=== PATIENT | female | born 1975 | race Caucasian/White ===

== ENCOUNTER 2016-09-06 17:36 | Emergency (ER) | payer MEDICAID ==
[~2016-09-06] VITALS: Ht 172.7 cm; Wt 73.6 kg
[~2016-09-06 17:36] MED LIST: ADDERALL20 MG PO; AMBIEN 10MG10 MG PO; XANAX 0.5MG0.5 MG PO
[2016-09-06 17:41] VITALS: TEMP 98.9
[2016-09-06] MEDS ORDERED: GEODON 20 MG20 MG PO (17:44)
[2016-09-06] MEDS ORDERED: EFFEXOR XR75 MG/CAP PO (17:44)
[2016-09-06 18:42] LABS: BASO # 0.1 (0.0-0.2); BASO % 0.9 % (0.0-2.0); EOS # 0.1 (0.0-0.7); GRAN % 63.5 % (42.2-75.2); HEMATOCRIT 41.1 % (37.0-47.0); HEMOGLOBIN 13.8 g/dl (12.5-16.0); LYMPH # 3.3 (1.2-3.4); LYMPH % 29.7 % (20.0-51.0); MEAN CELL VOLUME 87 fl (80.0-100.0); MEAN CORPUSCULAR HEMOGLOBIN 29 pg (27.0-31.0); MEAN CORPUSCULAR HGB CONC 34 g/dl (33.0-37.0); MEAN PLATELET VOLUME 9.4 fl (7.4-10.4); MONO # 0.5 (0.1-0.6); MONO % 4.6 % (1.7-9.3); PLATELET COUNT 405 K/mm3 (130-400); RED BLOOD COUNT 4.72 M/mm3 (4.10-5.30); REDCELL DISTRIBUTION WIDTH-CV 12.9 % (11.5-14.5); WHITE BLOOD COUNT 11.1 K/mm3 (4.8-10.8)
[2016-09-06 18:49] LABS: ADJUSTED CALCIUM 8.8 mg/dL (8.4-10.2); ALBUMIN 4.7 gm/dL (3.5-5.0); BILIRUBIN,TOTAL 0.8 mg/dL (0.0-1.0); CALCIUM 9.4 mg/dL (8.4-10.2); CREATININE, serum 0.76 mg/dL (0.52-1.25); POTASSIUM 3.6 mmol/L (3.4-5.0); TOTAL PROTEIN 8.5 gm/dL (6.4-8.2)
[2016-09-06] MEDS ORDERED: NORVASC 10MG10 MG PO (20:15)
[2016-09-06 20:53] VITALS: BP 160/113; PULSE 84
== END 2016-09-06 20:55 | disposition home or self-care (01) ==
LOC: COL.ER 17:36
PROVIDERS: Emergency Medicine
DX: I10 Essential (primary) hypertension (principal); F17.210 Nicotine dependence, cigarettes, uncomplicated; T46.5X6A Underdosing of other antihypertensive drugs, initial encounter

== ENCOUNTER 2016-09-19 17:07 | Emergency (ER) | payer MEDICAID ==
[~2016-09-19] VITALS: Ht 172.7 cm; Wt 72.7 kg
[~2016-09-19 17:07] MED LIST changes: +EFFEXOR XR75 MG/CAP PO; +GEODON 20 MG20 MG PO; +NORVASC 10MG10 MG PO
[2016-09-19 17:22] VITALS: TEMP 98.5
[2016-09-19 18:04] LABS: BASO # 0.1 (0.0-0.2); BASO % 0.7 % (0.0-2.0); EOS # 0.1 (0.0-0.7); EOS % 0.9 % (0-4.0); GRAN # 8.8 (1.4-6.5); GRAN % 67.9 % (42.2-75.2); HEMATOCRIT 39.7 % (37.0-47.0); HEMOGLOBIN 13.6 g/dl (12.5-16.0); LYMPH # 3.3 (1.2-3.4); LYMPH % 25.7 % (20.0-51.0); MEAN CELL VOLUME 87 fl (80.0-100.0); MEAN CORPUSCULAR HEMOGLOBIN 30 pg (27.0-31.0); MEAN CORPUSCULAR HGB CONC 34 g/dl (33.0-37.0); MEAN PLATELET VOLUME 9.4 fl (7.4-10.4); MONO # 0.6 (0.1-0.6); MONO % 4.3 % (1.7-9.3); PLATELET COUNT 401 K/mm3 (130-400); RED BLOOD COUNT 4.57 M/mm3 (4.10-5.30); REDCELL DISTRIBUTION WIDTH-CV 12.9 % (11.5-14.5)
[2016-09-19 18:11] LABS: PROTHROMBIN TIME 10.5 SECONDS (9.7-12.8)
[2016-09-19 18:14] LABS: PARTIAL THROMBOPLASTIN TIME 28.3 SECONDS (26.0-37.0)
[2016-09-19 18:21] LABS: ADJUSTED CALCIUM 8.9 mg/dL (8.4-10.2); ALANINE AMINOTRANSFERASE 27 U/L (9-52); ALBUMIN 4.6 gm/dL (3.5-5.0); ALKALINE PHOSPHATASE 66 U/L (50-136); ANION GAP 16 mmol/L (7-16); BILIRUBIN,TOTAL 0.5 mg/dL (0.0-1.0); BLOOD UREA NITROGEN 5 mg/dL (7-17); CALCIUM 9.4 mg/dL (8.4-10.2); CARBON DIOXIDE 21 mmol/L (22-30); CHLORIDE 101 mmol/L (98-107); CREATININE, serum 0.67 mg/dL (0.52-1.25); GLUCOSE 91 mg/dL (74-106); POTASSIUM 3.5 mmol/L (3.4-5.0); SODIUM 138 mmol/L (137-145); TOTAL PROTEIN 8.2 gm/dL (6.4-8.2)
[2016-09-19 18:33] LABS: TROPONIN-I < 0.012 ng/mL (0.000-0.034)
[2016-09-19 20:02] VITALS: BP 128/96; PULSE 90
[2016-09-19 22:38] LABS: MAGNESIUM 1.8 mg/dL (1.6-2.3)
== END 2016-09-19 20:04 | disposition home or self-care (01) ==
LOC: COL.ER 17:07
PROVIDERS: Emergency Medicine
DX: F41.0 Panic disorder [episodic paroxysmal anxiety] (principal); I10 Essential (primary) hypertension
CPT/HCPCS: J2060; J7030

== ENCOUNTER 2016-09-28 17:44 | Emergency (ER) | payer MEDICAID ==
[~2016-09-28] VITALS: Ht 172.7 cm; Wt 73.6 kg
[2016-09-28 17:54] VITALS: TEMP 99.1
[2016-09-28 18:40] LABS: PH 7 (5-8); SQUAMOUS EPITHELIAL 0-2 /hpf; URINE APPEARANCE Hazy; URINE BACTERIA Rare /hpf; URINE BILIRUBIN Negative (NEGATIVE); URINE BLOOD 1+ (NEGATIVE); URINE COLOR Yellow; URINE GLUCOSE Negative (NEGATIVE); URINE KETONE Negative (NEGATIVE); URINE UROBILINOGEN Negative (NEGATIVE)
[2016-09-28 18:49] LABS: AMPHETAMINE URINE NEGATIVE; BARBITURATES URINE NEGATIVE; BENZODIAZEPINES URINE POSITIVE; BUPRENORPHINE URINE NEGATIVE; METHADONE URINE NEGATIVE; OPIATES URINE NEGATIVE; OXYCODONE URINE NEGATIVE; PHENCYCLIDINE URINE NEGATIVE; PROPOXYPHENE URINE NEGATIVE; THC CANNABINOIDS URINE NEGATIVE
[2016-09-28 19:07] LABS: BASO # 0.1 (0.0-0.2); EOS # 0.1 (0.0-0.7); EOS % 0.8 % (0-4.0); GRAN # 4.7 (1.4-6.5); GRAN % 54.9 % (42.2-75.2); HEMATOCRIT 37.9 % (37.0-47.0); HEMOGLOBIN 13.1 g/dl (12.5-16.0); LYMPH # 3.3 (1.2-3.4); LYMPH % 37.7 % (20.0-51.0); MEAN CELL VOLUME 87 fl (80.0-100.0); MEAN CORPUSCULAR HEMOGLOBIN 30 pg (27.0-31.0); MEAN CORPUSCULAR HGB CONC 35 g/dl (33.0-37.0); MEAN PLATELET VOLUME 8.7 fl (7.4-10.4); MONO # 0.5 (0.1-0.6); MONO % 5.4 % (1.7-9.3); PLATELET COUNT 405 K/mm3 (130-400); RED BLOOD COUNT 4.36 M/mm3 (4.10-5.30); REDCELL DISTRIBUTION WIDTH-CV 12.8 % (11.5-14.5); WHITE BLOOD COUNT 8.6 K/mm3 (4.8-10.8)
[2016-09-28 19:14] LABS: ACETAMINOPHEN < 10 ug/mL (10-30); ALANINE AMINOTRANSFERASE 39 U/L (9-52); ALBUMIN 4.6 gm/dL (3.5-5.0); ALKALINE PHOSPHATASE 79 U/L (50-136); ANION GAP 13 mmol/L (7-16); BILIRUBIN,TOTAL 0.7 mg/dL (0.0-1.0); BLOOD UREA NITROGEN 10 mg/dL (7-17); CALCIUM 9.5 mg/dL (8.4-10.2); CARBON DIOXIDE 26 mmol/L (22-30); CHLORIDE 99 mmol/L (98-107); CREATININE, serum 0.68 mg/dL (0.52-1.25); GLUCOSE 87 mg/dL (74-106); POTASSIUM 3.7 mmol/L (3.4-5.0); SALICYLATE < 1.0 mg/dL; SODIUM 137 mmol/L (137-145); TOTAL PROTEIN 8.1 gm/dL (6.4-8.2)
[2016-09-28] MEDS ORDERED: NEURONTIN100 MG/CAP PO (23:55)
[2016-09-29 01:00] VITALS: BP 139/90; PULSE 85
== END 2016-09-29 02:45 | disposition short-term general hospital (02) ==
LOC: COL.ER 17:44
PROVIDERS: Emergency Medicine
DX: F33.3 Major depressive disorder, recurrent, severe with psychotic symptoms (principal); F41.1 Generalized anxiety disorder; F60.3 Borderline personality disorder; R45.851 Suicidal ideations; I10 Essential (primary) hypertension

== ENCOUNTER 2016-10-20 08:11 | Emergency (ER) | payer MEDICAID ==
[~2016-10-20] VITALS: Ht 172.7 cm; Wt 75.0 kg
[~2016-10-20 08:11] MED LIST changes: +NEURONTIN100 MG/CAP PO
[2016-10-20 08:12] VITALS: TEMP 99.3
[2016-10-20] MEDS ORDERED: GEODON 40MG40 MG PO (08:25)
[2016-10-20] MEDS ORDERED: CATAPRES 0.1MG0.1 MG PO (08:26)
[2016-10-20] MEDS ORDERED: KLONOPIN 0.5MG0.5 MG PO ×2 (08:27→08:28)
[2016-10-20] MEDS ORDERED: AMBIEN 10MG10 MG PO (08:28)
[2016-10-20] MEDS ORDERED: ATIVAN 1MG T1 MG/TAB PO (08:29)
[2016-10-20 09:03] LABS: BASO % 0.3 % (0.0-2.0); EOS # 0.2 (0.0-0.7); EOS % 1.9 % (0-4.0); GRAN # 8.7 (1.4-6.5); GRAN % 86.1 % (42.2-75.2); HEMATOCRIT 39.2 % (37.0-47.0); HEMOGLOBIN 12.8 g/dl (12.5-16.0); LYMPH # 0.8 (1.2-3.4); MEAN CELL VOLUME 89 fl (80.0-100.0); MEAN CORPUSCULAR HEMOGLOBIN 29 pg (27.0-31.0); MEAN CORPUSCULAR HGB CONC 33 g/dl (33.0-37.0); MEAN PLATELET VOLUME 8.6 fl (7.4-10.4); MONO # 0.3 (0.1-0.6); MONO % 3.3 % (1.7-9.3); PLATELET COUNT 375 K/mm3 (130-400); RED BLOOD COUNT 4.43 M/mm3 (4.10-5.30); REDCELL DISTRIBUTION WIDTH-CV 12.5 % (11.5-14.5); WHITE BLOOD COUNT 10.1 K/mm3 (4.8-10.8)
[2016-10-20 09:22] LABS: ADJUSTED CALCIUM 8.3 mg/dL (8.4-10.2); ALANINE AMINOTRANSFERASE 29 U/L (9-52); ALBUMIN 4.4 gm/dL (3.5-5.0); ALKALINE PHOSPHATASE 66 U/L (50-136); ANION GAP 12 mmol/L (7-16); BILIRUBIN,TOTAL 0.8 mg/dL (0.0-1.0); BLOOD UREA NITROGEN 18 mg/dL (7-17); CALCIUM 8.6 mg/dL (8.4-10.2); CARBON DIOXIDE 22 mmol/L (22-30); CHLORIDE 105 mmol/L (98-107); CREATININE, serum 0.71 mg/dL (0.52-1.25); GLUCOSE 104 mg/dL (74-106); POTASSIUM 4.2 mmol/L (3.4-5.0); SODIUM 139 mmol/L (137-145); TOTAL PROTEIN 7.2 gm/dL (6.4-8.2)
[2016-10-20 09:23] LABS: C-REACTIVE PROTEIN < 0.5 mg/dL (0.0-0.9)
[2016-10-20 09:51] LABS: PH 5 (5-8); SQUAMOUS EPITHELIAL 0-2 /hpf; URINE APPEARANCE Clear; URINE BACTERIA None Seen /hpf; URINE BILIRUBIN Negative (NEGATIVE); URINE BLOOD 1+ (NEGATIVE); URINE COLOR Yellow; URINE GLUCOSE Negative (NEGATIVE); URINE KETONE Negative (NEGATIVE); URINE UROBILINOGEN Negative (NEGATIVE); URINE WBC 0-2 /hpf
[2016-10-20 10:59] VITALS: BP 137/98; PULSE 90
== END 2016-10-20 10:58 | disposition home or self-care (01) ==
LOC: COL.ER 08:11
PROVIDERS: Emergency Medicine
DX: F41.9 Anxiety disorder, unspecified (principal); F32.9 Major depressive disorder, single episode, unspecified; I10 Essential (primary) hypertension; F17.210 Nicotine dependence, cigarettes, uncomplicated; R42 Dizziness and giddiness; R20.0 Anesthesia of skin; R53.1 Weakness

== ENCOUNTER 2016-10-27 19:17 | Emergency (ER) | payer MEDICAID ==
[~2016-10-27] VITALS: Ht 172.7 cm; Wt 72.7 kg
[2016-10-27 19:17] VITALS: BP 141/99; TEMP 98.3
[~2016-10-27 19:17] MED LIST changes: +ATIVAN 1MG T1 MG/TAB PO; +CATAPRES 0.1MG0.1 MG PO; +GEODON 40MG40 MG PO; +KLONOPIN 0.5MG0.5 MG PO
[2016-10-27 20:05] LABS: BASO # 0.1 (0.0-0.2); BASO % 0.8 % (0.0-2.0); EOS # 0.2 (0.0-0.7); EOS % 1.6 % (0-4.0); GRAN # 6.2 (1.4-6.5); HEMATOCRIT 37.6 % (37.0-47.0); HEMOGLOBIN 12.9 g/dl (12.5-16.0); LYMPH # 4.9 (1.2-3.4); MEAN CELL VOLUME 85 fl (80.0-100.0); MEAN CORPUSCULAR HEMOGLOBIN 29 pg (27.0-31.0); MEAN CORPUSCULAR HGB CONC 34 g/dl (33.0-37.0); MEAN PLATELET VOLUME 8.9 fl (7.4-10.4); MONO # 0.5 (0.1-0.6); MONO % 4.4 % (1.7-9.3); PLATELET COUNT 446 K/mm3 (130-400); RED BLOOD COUNT 4.42 M/mm3 (4.10-5.30); REDCELL DISTRIBUTION WIDTH-CV 12.1 % (11.5-14.5)
[2016-10-27 20:15] LABS: ALANINE AMINOTRANSFERASE 63 U/L (9-52); ALBUMIN 4.8 gm/dL (3.5-5.0); ALKALINE PHOSPHATASE 79 U/L (50-136); ANION GAP 15 mmol/L (7-16); BILIRUBIN,TOTAL 0.9 mg/dL (0.0-1.0); BLOOD UREA NITROGEN 14 mg/dL (7-17); CALCIUM 9.6 mg/dL (8.4-10.2); CARBON DIOXIDE 23 mmol/L (22-30); CHLORIDE 98 mmol/L (98-107); CREATININE, serum 0.69 mg/dL (0.52-1.25); GLUCOSE 82 mg/dL (74-106); LIPASE 94 U/L (23-300); POTASSIUM 3.8 mmol/L (3.4-5.0); SODIUM 136 mmol/L (137-145); TOTAL PROTEIN 7.7 gm/dL (6.4-8.2)
[2016-10-27 20:26] LABS: B-TYPE NATRIURETIC PEPTIDE 34 pg/mL (0-125)
[2016-10-27 20:29] LABS: TROPONIN-I < 0.012 ng/mL (0.000-0.034)
[2016-10-27 21:47] VITALS: PULSE 72
== END 2016-10-27 21:47 | disposition home or self-care (01) ==
LOC: COL.ER 19:17
PROVIDERS: Emergency Medicine
DX: M54.2 Cervicalgia (principal); I10 Essential (primary) hypertension; Z87.891 Personal history of nicotine dependence; F41.9 Anxiety disorder, unspecified; T42.4X6A Underdosing of benzodiazepines, initial encounter; F32.9 Major depressive disorder, single episode, unspecified; R07.9 Chest pain, unspecified; M79.601 Pain in right arm
CPT/HCPCS: J2060; J7030

== ENCOUNTER 2017-09-03 10:19 | Emergency (ER) | payer MEDICAID ==
[~2017-09-03] VITALS: Ht 172.7 cm; Wt 59.1 kg
[2017-09-03] MEDS ORDERED: ADDERALL20 MG PO (10:37)
[2017-09-03] MEDS ORDERED: ZOLOFT 50MG50 MG PO (10:37)
[2017-09-03 12:47] LABS: COLLECTION METHOD CLEAN CATCH
[2017-09-03 12:52] LABS: BASO # 0.1 (0.0-0.2); BASO % 0.9 % (0.0-2.0); EOS % 0.4 % (0-4.0); GRAN % 58.4 % (42.2-75.2); HEMATOCRIT 39.7 % (37.0-47.0); HEMOGLOBIN 13.5 g/dl (12.5-16.0); LYMPH # 3.1 (1.2-3.4); LYMPH % 35.7 % (20.0-51.0); MEAN CELL VOLUME 83 fl (80.0-100.0); MEAN CORPUSCULAR HEMOGLOBIN 28 pg (27.0-31.0); MEAN CORPUSCULAR HGB CONC 34 g/dl (33.0-37.0); MEAN PLATELET VOLUME 9.3 fl (7.4-10.4); MONO # 0.4 (0.1-0.6); MONO % 4.4 % (1.7-9.3); PLATELET COUNT 461 K/mm3 (130-400); RED BLOOD COUNT 4.81 M/mm3 (4.10-5.30); REDCELL DISTRIBUTION WIDTH-CV 14.6 % (11.5-14.5)
[2017-09-03 12:59] LABS: ALANINE AMINOTRANSFERASE 30 U/L (9-52); ALKALINE PHOSPHATASE 90 U/L (50-136); ANION GAP 15 mmol/L (7-16); AST,SGOT 28 U/L (15-37); BILIRUBIN,TOTAL 0.7 mg/dL (0.0-1.0); BLOOD UREA NITROGEN 9 mg/dL (7-17); CALCIUM 9.8 mg/dL (8.4-10.2); CARBON DIOXIDE 22 mmol/L (22-30); CHLORIDE 101 mmol/L (98-107); CREATININE, serum 0.59 mg/dL (0.52-1.25); GLUCOSE 103 mg/dL (74-106); POTASSIUM 3.4 mmol/L (3.4-5.0); SODIUM 138 mmol/L (137-145); TOTAL PROTEIN 8.3 gm/dL (6.4-8.2)
[2017-09-03 13:11] LABS: ACETAMINOPHEN < 10 ug/mL (10-30)
[2017-09-03 13:13] LABS: TRICYCLIC ANTIDEPRESS URINE NEGATIVE
[2017-09-03 18:05] LABS: PH 7 (5-8); URINE APPEARANCE Hazy; URINE BILIRUBIN Negative (NEGATIVE); URINE BLOOD 1+ (NEGATIVE); URINE COLOR Straw; URINE GLUCOSE Negative (NEGATIVE); URINE KETONE 1+ (NEGATIVE); URINE LEUKOCYTE ESTERASE 1+ (NEGATIVE); URINE NITRATE Negative (NEGATIVE); URINE PROTEIN(semi-quant) Negative (NEGATIVE); URINE UROBILINOGEN Negative (NEGATIVE)
[2017-09-03 18:07] LABS: URINE RBC None Seen /hpf
[2017-09-03 18:08] LABS: SQUAMOUS EPITHELIAL 20-50 /hpf; URINE BACTERIA Moderate /hpf
[2017-09-03 19:56] VITALS: BP 155/124; PULSE 97; TEMP 97.8
== END 2017-09-03 19:55 | disposition short-term general hospital (02) ==
LOC: COL.ER 10:19
PROVIDERS: Emergency Medicine; Nurse Practitioner
DX: M54.5 Low back pain (principal); M25.561 Pain in right knee; M79.662 Pain in left lower leg; F31.9 Bipolar disorder, unspecified; F41.9 Anxiety disorder, unspecified; R40.2412 Glasgow coma scale score 13-15, at arrival to emergency department

== ENCOUNTER → 2017-09-08 | Emergency (ER) | payer MEDICAID ==
[~2017-09-08] MED LIST changes: +ZOLOFT 50MG50 MG PO
[2017-09-08 15:07] VITALS: TEMP 98.2
[2017-09-08 15:28] LABS: BASO # 0.1 (0.0-0.2); BASO % 0.7 % (0.0-2.0); EOS # 0.1 (0.0-0.7); EOS % 0.5 % (0-4.0); GRAN # 12.9 (1.4-6.5); GRAN % 77.2 % (42.2-75.2); HEMATOCRIT 41.4 % (37.0-47.0); HEMOGLOBIN 13.7 g/dl (12.5-16.0); LYMPH # 2.4 (1.2-3.4); MEAN CELL VOLUME 84 fl (80.0-100.0); MEAN CORPUSCULAR HEMOGLOBIN 28 pg (27.0-31.0); MEAN CORPUSCULAR HGB CONC 33 g/dl (33.0-37.0); MEAN PLATELET VOLUME 9.1 fl (7.4-10.4); MONO # 1.2 (0.1-0.6); MONO % 7.2 % (1.7-9.3); PLATELET COUNT 412 K/mm3 (130-400); RED BLOOD COUNT 4.91 M/mm3 (4.10-5.30)
[2017-09-08 15:43] LABS: ALANINE AMINOTRANSFERASE 26 U/L (9-52); ALKALINE PHOSPHATASE 76 U/L (50-136); ANION GAP 12 mmol/L (7-16); AST,SGOT 28 U/L (15-37); BILIRUBIN,TOTAL 0.5 mg/dL (0.0-1.0); BLOOD UREA NITROGEN 12 mg/dL (7-17); CALCIUM 9.3 mg/dL (8.4-10.2); CARBON DIOXIDE 23 mmol/L (22-30); CHLORIDE 101 mmol/L (98-107); CREATININE, serum 1.18 mg/dL (0.52-1.25); GLUCOSE 138 mg/dL (74-106); POTASSIUM 4.1 mmol/L (3.4-5.0); SODIUM 136 mmol/L (137-145); TOTAL PROTEIN 8.3 gm/dL (6.4-8.2)
[2017-09-08 15:45] LABS: ACETAMINOPHEN < 10 ug/mL (10-30); ALCOHOL(ethanol),MEDICAL < 10 mg/dL; SALICYLATE < 1.0 mg/dL
[2017-09-08 16:02] LABS: MAGNESIUM 1.9 mg/dL (1.6-2.3); PHOSPHOROUS 3.8 mg/dL (2.5-4.5)
[2017-09-08 16:26] LABS: ARTERIAL BLD GAS TCO2 CT 20.2; ARTERIAL BLOOD GAS BASE EXCESS -3.9 (-2-2); ARTERIAL BLOOD GAS HCO3 19.3 meq/L (22-26); ARTERIAL BLOOD GAS PCO2 29.8 mmHg (35-45); ARTERIAL BLOOD GAS pH 7.43 (7.35-7.45)
[2017-09-08 16:30] LABS: ARTERIAL BLOOD GAS PO2 289.9 mmHg (80-100)
[2017-09-08 16:46] LABS: COLLECTION METHOD CATHETER
[2017-09-08 16:59] LABS: MUCOUS Present /lpf; PH 7 (5-8); SQUAMOUS EPITHELIAL 0-2 /hpf; URINE APPEARANCE Clear; URINE BACTERIA None Seen /hpf; URINE BILIRUBIN Negative (NEGATIVE); URINE BLOOD 1+ (NEGATIVE); URINE COLOR Yellow; URINE GLUCOSE Negative (NEGATIVE); URINE KETONE Negative (NEGATIVE); URINE LEUKOCYTE ESTERASE Negative (NEGATIVE); URINE NITRATE Negative (NEGATIVE); URINE PROTEIN(semi-quant) Negative (NEGATIVE); URINE UROBILINOGEN Negative (NEGATIVE)
[2017-09-08 17:01] LABS: TRICYCLIC ANTIDEPRESS URINE NEGATIVE
[2017-09-08 17:30] VITALS: BP 98/57; PULSE 102
== END ==
LOC: COL.ER 14:56
PROVIDERS: Emergency Medicine
DX: T46.1X Poisoning by, adverse effect of and underdosing of calcium-channel blockers (principal); T50.994A Poisoning by other drugs, medicaments and biological substances, undetermined, initial encounter
CPT/HCPCS: J0330; J0610; J1815; J2250; J2405; J7030; J7060

== ENCOUNTER 2019-12-21 00:26 | Emergency (ER) | payer BC ==
[~2019-12-21] VITALS: Ht 172.7 cm; Wt 75.0 kg
[2019-12-21 00:40] VITALS: TEMP 97
[2019-12-21 01:39] LABS: BASO # 0.1 (0.0-0.2); BASO % 1.1 % (0.0-2.0); EOS # 0.1 (0.0-0.7); EOS % 0.9 % (0-4.0); GRAN # 7.4 (1.4-6.5); GRAN % 68.5 % (42.2-75.2); HEMATOCRIT 38.4 % (37.0-47.0); HEMOGLOBIN 12.9 g/dl (12.5-16.0); LYMPH # 2.5 (1.2-3.4); LYMPH % 23.5 % (20.0-51.0); MEAN CELL VOLUME 79 fl (80.0-100.0); MEAN CORPUSCULAR HEMOGLOBIN 27 pg (27.0-31.0); MEAN CORPUSCULAR HGB CONC 34 g/dl (33.0-37.0); MEAN PLATELET VOLUME 8.8 fl (7.4-10.4); MONO # 0.6 (0.1-0.6); MONO % 5.7 % (1.7-9.3); PLATELET COUNT 462 K/mm3 (130-400); RED BLOOD COUNT 4.86 M/mm3 (4.10-5.30); REDCELL DISTRIBUTION WIDTH-CV 14.9 % (11.5-14.5)
[2019-12-21 02:58] LABS: ALANINE AMINOTRANSFERASE 32 U/L (4-34); ALBUMIN 4.5 gm/dL (3.5-5.0); ALKALINE PHOSPHATASE 82 U/L (50-136); ANION GAP 15 mmol/L (7-16); AST,SGOT 36 U/L (15-37); BILIRUBIN,TOTAL 0.6 mg/dL (0.0-1.0); BLOOD UREA NITROGEN 11 mg/dL (7-17); CALCIUM 9.1 mg/dL (8.4-10.2); CARBON DIOXIDE 17 mmol/L (22-30); CHLORIDE 103 mmol/L (98-107); CREATININE, serum 0.63 (0.52-1.25); GLUCOSE 124 mg/dL (74-106); POTASSIUM 3.1 mmol/L (3.4-5.0); SODIUM 136 mmol/L (137-145); TOTAL PROTEIN 8.4 gm/dL (6.4-8.2)
[2019-12-21 02:59] LABS: ACETAMINOPHEN < 10 ug/mL (10-30); ALCOHOL(ethanol),MEDICAL < 10 mg/dL; SALICYLATE < 1.0 mg/dL
[2019-12-21 03:11] LABS: COLLECTION METHOD CATHETER
[2019-12-21 03:20] LABS: MUCOUS Present /lpf; PH 6 (5-8); SQUAMOUS EPITHELIAL 0-2 /hpf; URINE APPEARANCE Clear; URINE BACTERIA None Seen /hpf; URINE BILIRUBIN Negative (NEGATIVE); URINE BLOOD 2+ (NEGATIVE); URINE COLOR Yellow; URINE GLUCOSE Negative (NEGATIVE); URINE KETONE 1+ (NEGATIVE); URINE LEUKOCYTE ESTERASE Negative (NEGATIVE); URINE NITRATE Negative (NEGATIVE); URINE PROTEIN(semi-quant) 2+ (NEGATIVE); URINE RBC 20-50 /hpf; URINE UROBILINOGEN Negative (NEGATIVE)
[2019-12-21 03:33] LABS: TRICYCLIC ANTIDEPRESS URINE POSITIVE
[2019-12-21] MEDS ORDERED: ZYPREXA10 MG PO (08:04)
[2019-12-21 10:30] VITALS: BP 131/97; PULSE 89
== END 2019-12-21 10:35 | disposition home or self-care (01) ==
LOC: COL.ER 00:26
PROVIDERS: Physician Assistant
DX: F23 Brief psychotic disorder (principal); N93.8 Other specified abnormal uterine and vaginal bleeding; F32.9 Major depressive disorder, single episode, unspecified; F90.9 Attention-deficit hyperactivity disorder, unspecified type; I10 Essential (primary) hypertension
CPT/HCPCS: J1630; J2060

== ENCOUNTER 2020-05-22 06:11 | Inpatient (IN) | payer BC ==
[2020-05-22] VITALS (210 sets, daily range): BP systolic 127–1335; BP diastolic 85–107; PULSE 81–107; TEMP 97.4–98.3; O2SAT 92–100
[~2020-05-22] VITALS: Ht 170.2 cm; Wt 79.8 kg
[~2020-05-22 06:11] MED LIST changes: +ZYPREXA10 MG PO
[2020-05-22 06:43] LABS: BASO # 0.1 (0.0-0.2); BASO % 0.8 % (0.0-2.0); EOS % 0.3 % (0-4.0); GRAN # 8.9 (1.4-6.5); GRAN % 74.9 % (42.2-75.2); HEMATOCRIT 38.9 % (37.0-47.0); LYMPH # 2.2 (1.2-3.4); LYMPH % 18.8 % (20.0-51.0); MEAN CELL VOLUME 77 fl (80.0-100.0); MEAN CORPUSCULAR HEMOGLOBIN 26 pg (27.0-31.0); MEAN CORPUSCULAR HGB CONC 33 g/dl (33.0-37.0); MEAN PLATELET VOLUME 9.1 fl (7.4-10.4); MONO # 0.6 (0.1-0.6); MONO % 4.8 % (1.7-9.3); PLATELET COUNT 494 K/mm3 (130-400); RED BLOOD COUNT 5.04 M/mm3 (4.10-5.30); REDCELL DISTRIBUTION WIDTH-CV 15.4 % (11.5-14.5)
[2020-05-22 06:56] LABS: ALANINE AMINOTRANSFERASE 32 U/L (4-34); ALBUMIN 4.9 gm/dL (3.5-5.0); ALKALINE PHOSPHATASE 82 U/L (50-136); ANION GAP 20 mmol/L (7-16); AST,SGOT 37 U/L (15-37); BILIRUBIN,TOTAL 0.6 mg/dL (0.0-1.0); BLOOD UREA NITROGEN 11 mg/dL (7-17); CHLORIDE 100 mmol/L (98-107); CREATININE, serum 0.64 (0.52-1.25); GLUCOSE 146 mg/dL (74-106); POTASSIUM 3.1 mmol/L (3.4-5.0); SODIUM 133 mmol/L (137-145); TOTAL PROTEIN 8.4 gm/dL (6.4-8.2)
[2020-05-22 07:02] LABS: CARBON DIOXIDE 13 mmol/L (22-30)
[2020-05-22 07:12] LABS: TROPONIN-I < 0.012 ng/mL (0.000-0.035)
[2020-05-22 07:41] LABS: ACETAMINOPHEN 13 ug/mL (10-30)
[2020-05-22 07:42] LABS: SALICYLATE < 1.0 mg/dL
[2020-05-22 07:49] LABS: ARTERIAL BLD GAS TCO2 CT 13.4; ARTERIAL BLOOD GAS BASE EXCESS -3.9 (-2-2); ARTERIAL BLOOD GAS HCO3 13.1 meq/L (22-26); ARTERIAL BLOOD GAS pH 7.65 (7.35-7.45)
[2020-05-22 07:50] LABS: ARTERIAL BLOOD GAS PCO2 12.1 mmHg (35-45); ARTERIAL BLOOD GAS PO2 133.1 mmHg (80-100)
[2020-05-22 08:53] LABS: COLLECTION METHOD CLEAN CATCH
[2020-05-22 09:07] LABS: PH 5 (5-8); SQUAMOUS EPITHELIAL 0-2 /hpf; URINE APPEARANCE Hazy; URINE BACTERIA Rare /hpf; URINE BILIRUBIN Negative (NEGATIVE); URINE BLOOD 2+ (NEGATIVE); URINE COLOR Yellow; URINE GLUCOSE Negative (NEGATIVE); URINE KETONE 2+ (NEGATIVE); URINE LEUKOCYTE ESTERASE Negative (NEGATIVE); URINE NITRATE Negative (NEGATIVE); URINE PROTEIN(semi-quant) 1+ (NEGATIVE); URINE UROBILINOGEN Negative (NEGATIVE)
[2020-05-22 09:16] LABS: TRICYCLIC ANTIDEPRESS URINE POSITIVE
--- NOTE | 2020-05-22 13:43 | NUR ---
farmworker grain met with patient and her 9 year old daughter, Shira. Patient is difficult to understand as her words are garbled and she is shaking and twitching. Patient states that her left their home a while ago and she hasn't talked to him lately and doesn't want him to pepper picker Shira. Patient calls her sister, Serenity ([phone]) and this sr. social media & mobile manager talks to Serenity. Worker arranged for Serenity to pepper picker Shira right away. Serenity states she is glad that patient is at the hospital now. Worker filed a CPS report #[id number]. Patient will be screened by mental health agency once she is medically cleared. Worker collaborated with patient's nurse, Rosa regarding the above information.
--- NOTE | 2020-05-22 15:52 | NUR ---
PT is currently resting in bed. Is unable to sit up on own. Speech is broken. PT is able to answer some yes or no questions such as, if she is in pain or not. Patient appears to struggle with focusing at this time. PT has intermittent confusion as it pertains to time, place and situation. While awake PTs movements are best described as spastic. During assessment PT fell asleep quickly.
[2020-05-22 19:25] LABS: ANION GAP 12 mmol/L (7-16); BLOOD UREA NITROGEN 7 mg/dL (7-17); CALCIUM 8.6 mg/dL (8.4-10.2); CARBON DIOXIDE 20 mmol/L (22-30); CHLORIDE 104 mmol/L (98-107); CREATININE, serum 0.51 (0.52-1.25); GLUCOSE 99 mg/dL (74-106); POTASSIUM 3.4 mmol/L (3.4-5.0); SODIUM 136 mmol/L (137-145)
[2020-05-22 19:31] LABS: INR 1.1 (0.8-3.0); PROTHROMBIN TIME 12.5 SECONDS (9.7-12.8)
[2020-05-22 19:41] LABS: TROPONIN-I < 0.012 ng/mL (0.000-0.035)
--- NOTE | 2020-05-22 19:45 | NUR ---
Patient resting in bed. Drowsy, but awakens easily to verbal stimuli. Patient has spastic jerky limb movements when awake. Able to follow basic commands appropriately and is alert to self and place. Patient denied overdose was an attempt to harm or kill herself. Reported just taking more than she was supposed to multiple times. Patient's thought are somewhat confused and distracted and conversation will trail off if not re-directed. Will continue to monitor. Call light within reach.
--- NOTE | 2020-05-22 19:46 | NUR ---
Report given to BINH Dyer.
--- NOTE | 2020-05-22 20:00 | NUR ---
Updated on patient status via telephone. Attempted to obtain medication list from , however he is [place] of [place] and was unsure of all of patients medications. Obtained brief health history but also has only minimal knowledge of patient history. reported to this nurse that patient frequently will get her prescription for adderall and then take all of the pills in the first few days and then be out for the rest of the month. States that she doesn't follow the prescribed dose and "likes the way they make her feel". He has concerns about her continuing to be prescribed this medication. All questions and concerns addressed at this time.
--- NOTE | 2020-05-22 20:30 | NUR ---
Updated Sid from Poison Control on patient status. VS stable at this time. Patient partially alert and oriented with spastic body movement when awake. Reported to nurse that this is expected with amphetamine overdose. Requested to obtain a follow up CK now and lactic acid in the morning. Will continue to monitor.
--- NOTE | 2020-05-22 21:30 | NUR ---
Updated hospitalist on patient status. Reported potassium of 3.4; will initiate potassium replacement protocol. CK trending down and will check lactic acid in morning per Poison Control.
[2020-05-23] VITALS (665 sets, daily range): BP systolic 116–156; BP diastolic 69–99; PULSE 82–108; TEMP 97.8–98.3; O2SAT 60–100
--- NOTE | 2020-05-23 00:32 | NUR ---
Awakened to take oral potassium supplement. Patient drowsy but A&0 x3. VS stable will continue to monitor.
[2020-05-23] MEDS ORDERED: ELAVIL100 MG PO (01:58)
[2020-05-23 05:18] LABS: BASO # 0.1 (0.0-0.2); BASO % 1.3 % (0.0-2.0); EOS # 0.2 (0.0-0.7); EOS % 3.5 % (0-4.0); GRAN # 3.6 (1.4-6.5); GRAN % 52.2 % (42.2-75.2); HEMATOCRIT 38.9 % (37.0-47.0); HEMOGLOBIN 12.8 g/dl (12.5-16.0); LYMPH # 2.5 (1.2-3.4); LYMPH % 36.7 % (20.0-51.0); MEAN CELL VOLUME 79 fl (80.0-100.0); MEAN CORPUSCULAR HEMOGLOBIN 26 pg (27.0-31.0); MEAN CORPUSCULAR HGB CONC 33 g/dl (33.0-37.0); MEAN PLATELET VOLUME 9.1 fl (7.4-10.4); MONO # 0.4 (0.1-0.6); MONO % 6.2 % (1.7-9.3); PLATELET COUNT 427 K/mm3 (130-400); RED BLOOD COUNT 4.94 M/mm3 (4.10-5.30); REDCELL DISTRIBUTION WIDTH-CV 15.9 % (11.5-14.5)
[2020-05-23 05:28] LABS: CREATININE, serum 0.58 (0.52-1.25); POTASSIUM 3.8 mmol/L (3.4-5.0)
--- NOTE | 2020-05-23 07:41 | NUR ---
Report received from Manisha PURCELL and care resumed.
--- NOTE | 2020-05-23 09:47 | NUR ---
Pt called asking to go to the bathroom. Pt upset when asked if she could go out of room and I explained the bathroom was in the room. Once pt up she requested I leave the room. Explained to pt that for her safety due to being a high fall risk I had to stay and be able to help her. Pt also requesting a shower. Explained that a physical shower was not avaibable on unit but that I could provide her with warm bath wipes and clean linens. Pt accepted. Pt very restless and fidgiting. Once pt voided and cleaned up pt was helped back to bed and given ativan as ordered. Will continue to follow.
--- NOTE | 2020-05-23 10:47 | NUR ---
Dr Scott in to see pt at this time.
--- NOTE | 2020-05-23 11:10 | NUR ---
[facility] contacted regarding need for screen. Requested paperwork was faxed and stated they would review and be in contact.
--- NOTE | 2020-05-23 19:09 | NUR ---
Report given to Manisha PURCELL and care transfered.
--- NOTE | 2020-05-23 21:00 | NUR ---
Patient drowsy, but awakens easily. Is alert and oriented and follows commands appropriately. Asked again about contacting family and her belongings. Responded that she would get her belongings and familly would be notified when she is reardy to leave this facility. Appeared statisfied with this response at this time.
--- NOTE | 2020-05-23 22:55 | NUR ---
Discussed patient status with RN from [facility]. Will discuss case with their physician and get back to this nurse.
--- NOTE | 2020-05-23 23:07 | NUR ---
Patient on phone with RN from [facility] to answer questions. When off the phone, patient stated that that facility does not allow any administration of Ativan. Patient told RN that she would prefer to not go to that facility due to this. Attempted to call Agnes rojas back, and did not get a response.
[2020-05-24] VITALS (198 sets, daily range): BP systolic 110–159; BP diastolic 73–111; PULSE 73–87; TEMP 97.8–98.6; O2SAT 95–100
--- NOTE | 2020-05-24 01:37 | NUR ---
Case discussed with Daphney from [facility]. Will fax over negative covid swab results. Patient spoke on phone with RN and answered all questions. Will continue to monitor.
--- NOTE | 2020-05-24 01:50 | NUR ---
Notified by RN from [facility] that patient has been declined from that facility.
[2020-05-24 04:58] LABS: BASO # 0.1 (0.0-0.2); BASO % 1.1 % (0.0-2.0); EOS # 0.3 (0.0-0.7); EOS % 3.6 % (0-4.0); GRAN # 4.6 (1.4-6.5); GRAN % 56.2 % (42.2-75.2); HEMATOCRIT 39.8 % (37.0-47.0); HEMOGLOBIN 12.9 g/dl (12.5-16.0); LYMPH # 2.8 (1.2-3.4); LYMPH % 33.9 % (20.0-51.0); MEAN CELL VOLUME 81 fl (80.0-100.0); MEAN CORPUSCULAR HEMOGLOBIN 26 pg (27.0-31.0); MEAN CORPUSCULAR HGB CONC 32 g/dl (33.0-37.0); MEAN PLATELET VOLUME 9.1 fl (7.4-10.4); MONO # 0.4 (0.1-0.6); PLATELET COUNT 426 K/mm3 (130-400); RED BLOOD COUNT 4.89 M/mm3 (4.10-5.30)
[2020-05-24 05:10] LABS: CALCIUM 9.1 mg/dL (8.4-10.2); CREATININE, serum 0.66 (0.52-1.25); POTASSIUM 3.6 mmol/L (3.4-5.0)
--- NOTE | 2020-05-24 05:10 | NUR ---
Resting in bed with eyes shut; no concerns at this time.
--- NOTE | 2020-05-24 07:49 | NUR ---
Report received from Manisha PURCELL and care resumed.
--- NOTE | 2020-05-24 08:49 | NUR ---
Faxed COVID 19 test result to [facility] to aid in placement for patient.
--- NOTE | 2020-05-24 08:53 | NUR ---
Received call from crisis center requesting covid results. Results were reported as negative and copy faxed over to crisis center. They report continuing to work on placement at this time. Pt awake for breakfast. Denies any needs or concerns at this time. Was updated on most recent news from crisis center and told pt we would continue to update her as we hear anything. Will continue to follow.
--- NOTE | 2020-05-24 09:05 | NUR ---
Dr Ware in to see pt and updated on plan of care.
--- NOTE | 2020-05-24 11:37 | NUR ---
SW informed by nurse that working on placement was in progress. SW will continue to follow
--- NOTE | 2020-05-24 19:19 | NUR ---
Report given to Jeanine PURCELL and care transfered.
--- NOTE | 2020-05-24 20:46 | NUR ---
TRIED TO CALL REPORT TO [facility] [phone] GABY.
--- NOTE | 2020-05-24 21:19 | NUR ---
REPORAT CALLED TO ACCEPTING NURSE AT [facility], NO FURTHER QUESTIONS OR NEEDS AT THIS TIME. WILL SEND PT WITH SUITCASE THAT FAMILY BROUGHT. NURSING [place] PAVING MACHINE OPERATOR AWARE AND WILL BE COMPLETELING TRANSPORT PAPERWORK SOON.
--- NOTE | 2020-05-24 22:30 | NUR ---
DISCHARGED PATIENT TO SECURITY OFFICERS TO TRANPORT PATIENT TO [facility] PATIENT IDENTIFIES ALL BELONGINGS ( PURSE CELL PHONE CLOTHING, 2 PLASTIC BAGS AND 1 BLACK SIUT CASE. PAPERWORK FOR DISCHARGE IN ORDER AND GIVEN TO PAID INTERN PATIENT DRESSED IN PEGUERO SCRUBS,YELLOW SOCKS AND 2 WARM BLANKETS
== END 2020-05-24 20:30 | DRG 918 ==
LOC: COL.ER 06:11 → ICU 14:16
PROVIDERS: Emergency Medicine; Family Medicine; ADMIT Student in an Organized Health Care Education/Training Program
DX: T43.622A Poisoning by amphetamines, intentional self-harm, initial encounter (principal); E87.2 Acidosis; F41.9 Anxiety disorder, unspecified; F90.9 Attention-deficit hyperactivity disorder, unspecified type; F31.9 Bipolar disorder, unspecified; R00.0 Tachycardia, unspecified; D47.3 Essential (hemorrhagic) thrombocythemia; F17.210 Nicotine dependence, cigarettes, uncomplicated; I10 Essential (primary) hypertension
CPT/HCPCS: 99223-AI; 99231-AI; 99232-AI; J1650; J2060; J3480; J7030; J7050

== ENCOUNTER 2021-06-14 16:48 | Emergency (ER) | payer BC ==
[~2021-06-14] VITALS: Ht 172.7 cm; Wt 84.1 kg
[~2021-06-14 16:48] MED LIST changes: +ELAVIL100 MG PO
[2021-06-14 17:44] VITALS: TEMP 97.2
[2021-06-14 18:19] LABS: BASO # 0.1 K/mm3 (0.0-0.2); BASO % 1.2 % (0.0-2.0); EOS # 0.1 K/mm3 (0.0-0.7); EOS % 0.7 % (0-4.0); GRAN # 6.9 K/mm3 (1.4-6.5); LYMPH # 3.3 K/mm3 (1.2-3.4); LYMPH % 30.2 % (20.0-51.0); MEAN CELL VOLUME 76 fl (80.0-100.0); MEAN CORPUSCULAR HEMOGLOBIN 23 pg (27.0-31.0); MEAN CORPUSCULAR HGB CONC 30 g/dl (33.0-37.0); MEAN PLATELET VOLUME 8.7 fl (7.4-10.4); MONO # 0.5 K/mm3 (0.1-0.6); MONO % 4.7 % (1.7-9.3); PLATELET COUNT 659 K/mm3 (130-400); RED BLOOD COUNT 4.38 M/mm3 (4.10-5.30); REDCELL DISTRIBUTION WIDTH-CV 14.7 % (11.5-14.5)
[2021-06-14 18:20] LABS: HEMATOCRIT 33.2 % (37.0-47.0)
[2021-06-14 18:34] LABS: ALANINE AMINOTRANSFERASE 46 U/L (0-55); ALBUMIN 4.9 gm/dL (3.5-5.0); ALKALINE PHOSPHATASE 74 U/L (40-150); ANION GAP 15 mmol/L (7-16); AST,SGOT 31 U/L (5-34); BILIRUBIN,TOTAL 0.4 mg/dL (0.2-1.2); BLOOD UREA NITROGEN 9 mg/dL (7-19); CALCIUM 9.5 mg/dL (8.4-10.2); CARBON DIOXIDE 23 mmol/L (22-29); CHLORIDE 97 mmol/L (98-107); CREATININE, serum 0.83 mg/dL (0.57-1.11); GLUCOSE 113 mg/dL (70-99); POTASSIUM 3.4 mmol/L (3.5-4.5); SODIUM 135 mmol/L (136-145); TOTAL PROTEIN 8.4 gm/dL (6.2-8.1)
[2021-06-14 18:45] LABS: TROPONIN-I < 0.010 ng/mL (0.00-0.033)
[2021-06-14] MEDS ORDERED: TOPROL XL 50MG50 MG PO (19:40)
[2021-06-14 19:52] VITALS: BP 137/98; PULSE 86
== END 2021-06-14 19:52 | disposition home or self-care (01) ==
LOC: COL.ER 16:48
PROVIDERS: Physician Assistant
DX: D64.9 Anemia, unspecified (principal); F41.9 Anxiety disorder, unspecified; I10 Essential (primary) hypertension; R07.89 Other chest pain; F90.9 Attention-deficit hyperactivity disorder, unspecified type; F31.9 Bipolar disorder, unspecified; Z79.899 Other long term (current) drug therapy
CPT/HCPCS: J2060; J7030

== ENCOUNTER → 2021-08-12 | Outpatient (CLI) | payer BC ==
[~2021-08-12] MED LIST changes: +TOPROL XL 50MG50 MG PO
== END ==
LOC: MC.RAD 10:50
DX: N60.02 Solitary cyst of left breast (principal)

== ENCOUNTER 2022-03-31 05:25 | Inpatient (IN) | payer BC ==
[2022-03-31] VITALS (200 sets, daily range): BP systolic 86–109; BP diastolic 46–76; PULSE 86–112; TEMP 98.6–98.9; O2SAT 53–100
[~2022-03-31] VITALS: Ht 172.7 cm; Wt 96.6 kg
[2022-03-31 06:58] LABS: BASO # 0.1 K/mm3 (0.0-0.2); BASO % 0.6 % (0.0-2.0); EOS % 0.2 % (0.0-4.0); GRAN # 13.9 K/mm3 (1.4-6.5); HEMATOCRIT 40.1 % (37.0-47.0); HEMOGLOBIN 14.8 g/dl (12.5-16.0); LYMPH # 2.1 K/mm3 (1.2-3.4); LYMPH % 12.5 % (20.0-51.0); MEAN CELL VOLUME 80 fl (80.0-100.0); MEAN CORPUSCULAR HEMOGLOBIN 30 pg (27-31); MEAN CORPUSCULAR HGB CONC 37 g/dl (33.0-37.0); MEAN PLATELET VOLUME 9.4 fl (7.4-10.4); MONO # 0.7 K/mm3 (0.1-0.6); MONO % 4.3 % (1.7-9.3); PLATELET COUNT 443 K/mm3 (130-400); RED BLOOD COUNT 5.02 M/mm3 (4.10-5.30); REDCELL DISTRIBUTION WIDTH-CV 12.7 % (11.5-14.5)
[2022-03-31 07:12] LABS: ALANINE AMINOTRANSFERASE 39 U/L (0-55); ALBUMIN 4.6 gm/dL (3.5-5.0); ALKALINE PHOSPHATASE 82 U/L (40-150); ANION GAP 20 mmol/L (7-16); AST,SGOT 27 U/L (5-34); BILIRUBIN,TOTAL 0.9 mg/dL (0.2-1.2); BLOOD UREA NITROGEN 13 mg/dL (7-19); CALCIUM 9.9 mg/dL (8.4-10.2); CHLORIDE 102 mmol/L (98-107); CREATININE, serum 1.26 mg/dL (0.57-1.11); GLUCOSE 117 mg/dL (70-99); SODIUM 136 mmol/L (136-145); TOTAL PROTEIN 8.4 gm/dL (6.2-8.1)
[2022-03-31 07:13] LABS: ACETAMINOPHEN < 1.0 ug/mL (10-30); ALCOHOL(ethanol),MEDICAL < 10 mg/dL (0-10); SALICYLATE < 5.0 mg/dL (15.0-30.0)
[2022-03-31 07:14] LABS: CARBON DIOXIDE 14 mmol/L (22-29)
[2022-03-31 07:24] LABS: CREATINE KINASE 265 U/L (29-168); IRON,SERUM 103 ug/dL (50-175)
[2022-03-31] MEDS ORDERED: NORVASC 10MG10 MG (07:36)
[2022-03-31] MEDS ORDERED: ZYRTEC 10MG10 MG (07:37)
[2022-03-31] MEDS ORDERED: KLONOPIN 0.5MG0.5 MG (07:37)
[2022-03-31] MEDS ORDERED: NATURAL IRON65 MG (07:38)
[2022-03-31] MEDS ORDERED: PROZAC40 MG (07:38)
[2022-03-31] MEDS ORDERED: MYDAYIS ER 50 M50 MG (07:39)
[2022-03-31] MEDS ORDERED: INDERAL 10MG10 MG (07:39)
[2022-03-31] MEDS ORDERED: COZAAR 50MG50 MG/TAB (07:39)
[2022-03-31] MEDS ORDERED: AMBIEN 10MG10 MG (07:40)
[2022-03-31 16:14] LABS: COLLECTION METHOD CLEAN CATCH
[2022-03-31 16:19] LABS: URINE APPEARANCE Hazy (CLEAR/HAZY); URINE COLOR Yellow (YELLOW)
[2022-03-31 16:20] LABS: URINE BLOOD Negative (NEGATIVE); URINE GLUCOSE Negative (NEGATIVE); URINE KETONE 4+ (NEGATIVE); URINE NITRATE Negative (NEGATIVE); URINE PROTEIN(semi-quant) 2+ (NEGATIVE); URINE UROBILINOGEN 0.2 E.U/dL (0.2-1.0)
[2022-03-31 16:21] LABS: MUCOUS Present (NOT PRESENT); SQUAMOUS EPITHELIAL 0-2 /hpf (0-10); URINE BACTERIA Rare /hpf (NONE SEEN)
[2022-03-31 16:30] LABS: TRICYCLIC ANTIDEPRESS URINE NEGATIVE
[2022-03-31 18:15] LABS: CALCIUM 8.8 mg/dL (8.4-10.2); CREATININE, serum 2.47 mg/dL (0.57-1.11); MAGNESIUM 1.5 mg/dL (1.6-2.6); POTASSIUM 3.2 mmol/L (3.5-4.5)
[2022-03-31 19:02] LABS: CALCIUM 8.6 mg/dL (8.4-10.2); CREATININE, serum 2.5 mg/dL (0.57-1.11); POTASSIUM 3.1 mmol/L (3.5-4.5)
[2022-03-31 23:31] LABS: CALCIUM 8.9 mg/dL (8.4-10.2); CREATININE, serum 2.95 mg/dL (0.57-1.11); POTASSIUM 3.7 mmol/L (3.5-4.5)
[2022-04-01] VITALS (863 sets, daily range): BP systolic 90–149; BP diastolic 51–92; PULSE 84–101; TEMP 97.8–98.7; O2SAT 63–100
[2022-04-01 06:44] LABS: BASO # 0.1 K/mm3 (0.0-0.2); BASO % 0.8 % (0.0-2.0); EOS # 0.1 K/mm3 (0.0-0.7); EOS % 1.2 % (0.0-4.0); GRAN # 7.1 K/mm3 (1.4-6.5); GRAN % 67.6 % (42.2-75.2); LYMPH # 2.4 K/mm3 (1.2-3.4); LYMPH % 22.4 % (20.0-51.0); MEAN CELL VOLUME 84 fl (80.0-100.0); MEAN CORPUSCULAR HGB CONC 35 g/dl (33.0-37.0); MEAN PLATELET VOLUME 10.1 fl (7.4-10.4); MONO # 0.8 K/mm3 (0.1-0.6); MONO % 7.6 % (1.7-9.3); PLATELET COUNT 357 K/mm3 (130-400); RED BLOOD COUNT 4.11 M/mm3 (4.10-5.30); REDCELL DISTRIBUTION WIDTH-CV 13.1 % (11.5-14.5)
[2022-04-01 06:53] LABS: HEMATOCRIT 34.3 % (37.0-47.0); HEMOGLOBIN 12.1 g/dl (12.5-16.0); MEAN CORPUSCULAR HEMOGLOBIN 29 pg (27-31)
[2022-04-01 06:56] LABS: CALCIUM 8.7 mg/dL (8.4-10.2); CREATININE, serum 3.03 mg/dL (0.57-1.11); MAGNESIUM 2.1 mg/dL (1.6-2.6); POTASSIUM 3.5 mmol/L (3.5-4.5)
[2022-04-01 07:04] LABS: THYROID STIMULATING HORMONE 0.653 uIU/mL (0.350-4.940)
[2022-04-01 10:38] LABS: CREATININE, serum 3.15 mg/dL (0.57-1.11); FRACTIONAL EXCRETION OF NA+ 0.62 %
[2022-04-01 19:00] LABS: CALCIUM 8.3 mg/dL (8.4-10.2); CREATININE, serum 3.41 mg/dL (0.57-1.11); POTASSIUM 3.4 mmol/L (3.5-4.5)
[2022-04-02] VITALS (711 sets, daily range): BP systolic 103–128; BP diastolic 71–89; PULSE 77–86; TEMP 98.2–98.8; O2SAT 63–99
[2022-04-02 05:36] LABS: BASO # 0.1 K/mm3 (0.0-0.2); BASO % 0.6 % (0.0-2.0); EOS # 0.2 K/mm3 (0.0-0.7); EOS % 2.1 % (0.0-4.0); GRAN # 5.8 K/mm3 (1.4-6.5); GRAN % 72.6 % (42.2-75.2); HEMOGLOBIN 11.5 g/dl (12.5-16.0); LYMPH # 1.4 K/mm3 (1.2-3.4); LYMPH % 17.9 % (20.0-51.0); MEAN CELL VOLUME 83 fl (80.0-100.0); MEAN CORPUSCULAR HEMOGLOBIN 30 pg (27-31); MEAN CORPUSCULAR HGB CONC 36 g/dl (33.0-37.0); MEAN PLATELET VOLUME 9.9 fl (7.4-10.4); MONO # 0.5 K/mm3 (0.1-0.6); MONO % 6.7 % (1.7-9.3); PLATELET COUNT 298 K/mm3 (130-400); RED BLOOD COUNT 3.87 M/mm3 (4.10-5.30); REDCELL DISTRIBUTION WIDTH-CV 12.9 % (11.5-14.5)
[2022-04-02 06:11] LABS: CALCIUM 8.3 mg/dL (8.4-10.2); CREATININE, serum 3.77 mg/dL (0.57-1.11); POTASSIUM 3.3 mmol/L (3.5-4.5)
== END 2022-04-02 13:42 | disposition short-term general hospital (02) | DRG 918 ==
LOC: COL.ER 05:25 → ICU 08:02 → COL.ER 08:02 → ICU 04-02 13:42
PROVIDERS: Emergency Medicine; Internal Medicine; Physician Assistant; Student in an Organized Health Care Education/Training Program; ADMIT Internal Medicine
PROC: 02HV33Z Insertion of Infusion Device into Superior Vena Cava, Percutaneous Approach (ICD-10-PCS; principal; 2022-04-01)
DX: T50.902A Poisoning by unspecified drugs, medicaments and biological substances, intentional self-harm, initial encounter (principal); N17.9 Acute kidney failure, unspecified; E87.2 Acidosis; F32.3 Major depressive disorder, single episode, severe with psychotic features; I10 Essential (primary) hypertension; G43.909 Migraine, unspecified, not intractable, without status migrainosus; J45.909 Unspecified asthma, uncomplicated; F43.10 Post-traumatic stress disorder, unspecified; G47.00 Insomnia, unspecified; D72.829 Elevated white blood cell count, unspecified; F90.9 Attention-deficit hyperactivity disorder, unspecified type; E87.6 Hypokalemia; N28.89 Other specified disorders of kidney and ureter; F41.1 Generalized anxiety disorder; F19.94 Other psychoactive substance use, unspecified with psychoactive substance-induced mood disorder; Y92.89 Other specified places as the place of occurrence of the external cause; Z90.89 Acquired absence of other organs
CPT/HCPCS: C1751; C1892; J1940; J2060; J2250; J3475; J7030; J7060; J7120